=== PATIENT | male | born 1980 | race Caucasian/White ===

== ENCOUNTER 2019-04-27 09:30 | Emergency (ER) | payer BC ==
[~2019-04-27] VITALS: Ht 162.6 cm; Wt 67.1 kg
[2019-04-27 09:40] VITALS: BP 149/90
--- NOTE | 2019-04-27 11:26 | NUR ---
PT BROUGHT SELF INTO EMERGENCY ROOM FOR PAINC ATTACK ALST NIGHT CURRENTLY UP AND DOWN TO BATH ROOM
== END 2019-04-27 11:42 | disposition home or self-care (01) ==
LOC: ER 09:35
DX: F41.9 Anxiety disorder, unspecified (principal); F10.10 Alcohol abuse, uncomplicated; Y90.9 Presence of alcohol in blood, level not specified